=== PATIENT | male | born 1980 | race Caucasian/White ===

== ENCOUNTER 2019-10-31 09:09 | Emergency (ER) | payer MEDICAID, SELFPAY ==
[2019-10-31 09:10] VITALS: BP 158/80; PULSE 72; RESP 18; TEMP 36.4; O2SAT 98; BMI 27.2
--- NOTE | 2019-10-31 09:17 | ED.VIS.URI ---
History of Present Illness Informant: Patient Onset: Yesterday Context: Gradual Onset Timing: Continuous Quality: aching Location: right ear Current Severity: Moderate Maximum Severity: Severe Worsened by: - - nothing Relieved by: NSAIDs Associated Symptoms: Nasal Congestion. Negative for: Headache, Sinus Pressure, Myalgias, Nausea, Vomiting, Diarrhea, Shortness of Breath, Chest Pain, Nonproductive cough, Hemoptysis, Productive Cough Narrative: 38-year-old male who denies any significant past medical history presents to the emergency department with right ear pain. Seen at the urgent care yesterday and prescribed amoxicillin for an ear infection but he has noticed continued pain and small amount of bleeding from his right ear. He is not lightheaded or dizzy. He has no headache or fever. He has no blurry or double vision he has no loss of hearing no cough congestion chest pain vomiting or diarrhea. Prior similar symptoms: Yes Recent Illness/Hospitalization: No <Volodymyr Wick - Last Filed: 10/31/19 09:17> <Magan Caro - Last Filed: 10/31/19 09:27> Chief Complaint: Ear Problem Past Medical History Prior records reviewed: Yes Past Medical History: None Surgical History: no surgical history Lives: With Family Smoking Status: Never smoker Alcohol: Occasional Drugs: None <Volodymyr Wick - Last Filed: 10/31/19 09:17> <Magan Caro - Last Filed: 10/31/19 09:27> - Allergies and Home Meds Allergies/Adverse Reactions: Allergies No Known Allergies Allergy (Verified 10/31/19 09:11) Primary Care Physician: Douglas Adame [Primary Care Provider] - 3-5 Days if not improving Review of Systems All systems negative except as indicated General: Denies: Chills, Fever Eyes: Denies: Visual changes - bilaterally, Blurred Vision - bilaterally, Diplopia ENT: Reports: Right ear pain. Denies: Bilateral ear pain, Left ear pain, Rhinorrhea, Sore throat Cardiovascular: Denies: Chest pain, Palpitations, Heart racing Respiratory: Denies: Dyspnea, Cough, Sputum Gastrointestinal: Denies: Abdominal pain, Nausea, Vomiting, Diarrhea Musculoskeletal: Denies: Myalgias, Arthralgias Skin: Denies: Rash, Abscess, Abrasions, Wounds Neurological: Denies: Headache, Weakness, Parasthesia Hematologic: Denies: Easy bruising, Easy bleeding <Volodymyr Wick - Last Filed: 10/31/19 09:17> Physical Exam Vital Signs/Narrative: Vital Signs Temp Pulse Resp BP Pulse Ox 10/31/19 09:10 97.6 F L 72 18 158/80 H 98 Inital Vital Signs reviewed: Yes General: Well nourished, Well developed Head: Normocephalic, Atraumatic. Negative for: Sinus Tenderness Eyes: Perrl, EOMI Ears: - - Patient has right otitis externa with swelling and drainage and small amount of blood in the external canal. The left tympanic membrane and left external canal are normal. There is no evidence of mastoid tenderness. Nose: Normal Inspection, No Rhinorrhea Mouth/Throat: Normal Inspection, No Posterior Erythema Neck: Supple, Nontender, No Lymphadenopathy, No Meningismus Cardiovascular: Regular rate, Regular rhythm, No murmurs Respiratory: No distress, CTA bilaterally, Chest nontender Abdomen: Soft, Nontender, Nondistended, Normal bowel sounds, No masses Back: Nontender, Normal Inspection Extremities: Nontender, No edema Skin: Normal color, No rash Neurological: Alert, Oriented x3 Psychological: Normal affect, Normal Mood <Volodymyr Wick - Last Filed: 10/31/19 09:17> Vital Signs/Narrative: Vital Signs Temp Pulse Resp BP Pulse Ox 10/31/19 09:10 97.6 F L 72 18 158/80 H 98 <Clayton Caroo - Last Filed: 10/31/19 09:27> Diagnostic/Tx/Re-eval - Medical Decision Making Patient has evidence of otitis externa. He has no mastoid redness or tenderness. Will place on Cortisporin otic and have him follow-up with his primary care physician. <Volodymyr Wick - Last Filed: 10/31/19 09:17> - Medical Decision Making An independent history physical was obtained by me. Patient presents because of right ear pain. Blood was noted. He states when he was seen at the urgent care the provider commented that he has significant of cerumen. He attempted to scrape the cerumen out. This caused the bleeding. He denies any purulent drainage. He denies muffled hearing or ringing in his ears. Patient has minimal discomfort with pressure on the tragus no discomfort pulling on the auricle. There is no pre-auricular lymphadenopathy. The TM appears intact. 50% of the TM was visualized. There is blood and erythema right auditory canal. Findings are consistent with otitis externa. Patient was treated with otic drops and discharged to home. <Magan Caro - Last Filed: 10/31/19 09:27> ED Disposition <Volodymyr Wick - Last Filed: 10/31/19 09:17> <Magan Caro - Last Filed: 10/31/19 09:27> - Plan for ED Patient: Disposition: Home or Assisted Living Diagnosis: Otitis externa Instructions: EXTERNAL EAR INFECTION (Adult) Prescriptions: Neomyc/Colist/Hydrocort/Thonzn [Cortisporin-Tc Ear Suspension] 2 drp OT TID #1 bottle Prescription Printed Referrals: Douglas Adame [Primary Care Provider] - 3-5 Days if not improving
== END 2019-10-31 10:00 | disposition home or self-care (01) ==
PROVIDERS: Emergency Provider Physician Assistant Medical; PCP Family Medicine
DX: H60.91 Unspecified otitis externa, right ear (principal)
CPT/HCPCS: 99282

== ENCOUNTER 2023-01-24 20:31 | Emergency (ER) | payer MEDICAID, SELFPAY ==
[2023-01-24 20:32] VITALS: BP 136/94; PULSE 103; RESP 16; TEMP 36.6; O2SAT 97; BMI 30.3
[2023-01-24] MEDS: Amox/Clavulanate 875 MG Tablet PO (21:47)
[2023-01-24] MEDS: Diphth,Pertuss(Acell),Tet Vac 0.5 ML Vial IM (21:48)
--- NOTE | 2023-01-24 23:40 | EX.ED.VISEXT ---
HPI History of Present Illness Chief Complaint: Bite Informant: patient Narrative Narrative: [id number] male was petting a family member's dog, and as he was standing up, the dog suddenly jumped up and bit him in the right upper arm/axilla creating multiple wounds. He presents just after this. States the dog has had rabies immunizations, has not been ill lately, and has been known to bite people from time to time. He denies any numbness or tingling or other systemic symptoms or injuries. Tetanus Immunization: >10 years ROS ROS ED Constitutional Constitutional ED: Denies chills or fever(s) Musculoskeletal Musculoskeletal: Reports extremity pain; Denies neck pain Integumentary Reports wounds; Denies Abrasions or rash Neurologic Neurologic: Denies paresthesias or weakness PFSH PFSH Home Medications seokfyjn-caknxw-MA-thonzonm 3.3 mg-3 mg-10 mg-0.5 mg/mL ear drops,susp 2 drp OT TID ##1 10/31/19 [Rx Last Taken Unknown] amoxicillin 875 mg-potassium clavulanate 125 mg tablet 875 mg PO Q12H #20 TABLETS 01/24/23 [Rx Last Taken Unknown] oxycodone-acetaminophen 5 mg-325 mg tablet 1 tab PO Q6H PRN PRN Pain 3 days #12 TABLETS 01/24/23 [Rx Last Taken Unknown] Allergy/AdvReac Type Severity Reaction Status Date / Time No Known Allergies Allergy Verified 01/24/23 20:33 Social History Smoking Status: Never smoker EXAM Physical Exam Const Vital Signs: 01/24/23 20:32 Temperature 98 F Temperature Source Temporal Pulse Rate 103 H Respiratory Rate 16 Blood Pressure 136/94 H Blood Pressure Mean 108 Pulse Ox 97 Oxygen Delivery Method Room Air Positive well nourished and well developed General Appearance ED: well developed and NAD Neck full ROM and supple Back/Spine normal ROM and normal to inspection Extremity full ROM Extremity Narrative: 5 separate lacerations/puncture wounds to the axilla/right upper arm see below. Full range of motion of the shoulder and elbow without discomfort, all compartments are soft and nondistended. No signs of cellulitis or purulent discharge. Neuro oriented x3, no focal motor deficits and no sensory deficits noted Sensorium / Orientation: alert Psych mental status grossly normal and thought process normal Skin Skin Narrative: Multiple lacerations/puncture wounds to the posterior and medial aspect of the proximal right upper arm and one of them is in the axilla. There are a total of 5 open wounds. They all appear to be clean. 2 of them are 1.5 cm in length with subcutaneous tissue/fat visible plainly. Rashes: no rashes MDM MDM MDM Narrative Medical decision making narrative: Patient's tetanus was updated. I recommended closing 2 of the wounds due to the size and subcutaneous fat being largely exposed. Patient was amenable. The wounds were all irrigated profusely with saline under pressure, several of the wounds communicated with each other due to irrigating 1 and serosanguineous discharge being expressed through others. The 2 wounds that we closed were done so very loosely, just to encourage healing quicker so that the wound closed, I used a 5-0 Vicryl rapide on each 1, which should absorb without the need for removal. We discussed frequent dressing changes, he was started on Augmentin, and given a prescription for that and something for pain. If he has an infection that starts getting worse he was encouraged to return to the ER soon as possible. He is comfortable with that plan. Nursing dressed the wounds with bacitracin. Procedures Lacerations Right upper arm #1: Length: 1.5 cm Depth: Sub Q Shape: Linear Prep: Sterile Conditions and Chlorhexadine Laceration repair: Irrigated, Lidocaine (1 cc plain 1%), Local and Skin sutures Irrigated (ml): 80 Number of Sutures/Karlie: 1 Suture Information: Vicryl (Rapide), Simple and 5-0 Comment: Loosely approximated Right upper arm #2: Length: 1.5 cm Depth: Sub Q Shape: Linear Prep: Sterile Conditions and Chlorhexadine Laceration repair: Irrigated, Lidocaine (Plain 1% 1 cc), Local and Skin sutures Irrigated (ml): 80 Number of Sutures/Karlie: 1 Suture Information: Vicryl (Rapide), Simple and 5-0 Comment: Loosely approximated Discharge Plan Triage Chief Complaint: Bite ED Provider: Abdirahman Mcdonough Dx/Rx/DC Orders Clinical Impression: Open wound of right upper arm due to dog bite, Immunization, tetanus-diphtheria Instructions: ED Dog Bite, ED Laceration Extremity Prescriptions: New oxycodone-acetaminophen [oxycodone-acetaminophen] 5-325 mg tablet 1 tab PO Q6H PRN PRN (Reason: Pain) 3 Days Qty: 12 0RF amoxicillin-pot clavulanate [amoxicillin-pot clavulanate] 875-125 mg tablet 875 mg PO Q12H Qty: 20 0RF No Action gdbobfgy-iimems-DG-thonzonium 10 ML drops,suspension 2 drp OT TID Qty: 1 0RF Primary Care Provider: Douglas Adame Referrals: Douglas Adame, [Primary Care Provider] - 3-5 Days if not improving Activity Restrictions/Additional Instructions: You have 2 dissolvable skin sutures; they will fall out at some point. Continue changing dressings frequently for the first 2 or 3 days, and continue to change dressings at least once or twice daily while there is any drainage at all. You may stop once there is no drainage. For the first couple days to change them at least every 4-6 hours, more often if there is heavy drainage/bleeding. If things seem to be getting worse and/or you are running fevers, return to the ER. Disposition Disposition: Home, Self Care Discharge Date/Time: 01/25/23 00:04
[2023-01-24] MEDS: oxyCODONE 5 MG Tablet PO (23:58)
[2023-01-24] MEDS: Lidocaine 1% (20 ml mdv) 20 ML Vial INFILT (23:58)
== END 2023-01-25 00:04 | disposition home or self-care (01) ==
PROVIDERS: Emergency Provider Emergency Medicine; PCP Family Medicine; Visit Provider Emergency Medicine
DX: S41.151A Open bite of right upper arm, initial encounter (principal); Z23 Encounter for immunization; W54.0XXA Bitten by dog, initial encounter
CPT/HCPCS: 12002; 90471; 90715; 96372; 99285